=== PATIENT | female | born 1960 | race African-American/Black ===

== ENCOUNTER 2023-10-27 06:34 | Emergency (ER) | payer OTHER ==
[2023-10-27] MEDS ORDERED: methocarbamoL 750 MG TAB ONE (07:12)
[2023-10-27] MEDS ORDERED: IBUPROFEN 400 MG TAB ONE (07:12)
[2023-10-27] MEDS ORDERED: ONDANSETRON 4 MG (ODT) TAB ONE (07:12)
[2023-10-27] MEDS ORDERED: CODEINE 30MG/APAP 300MG TAB ONE (07:13)
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
[2023-10-27 09:30] VITALS: BP 156/87; O2SAT 100
== END 2023-10-27 09:10 | disposition home or self-care (01) ==
LOC: ER 06:34
DX: R51.9 Headache, unspecified (principal); M54.50 Low back pain, unspecified; M79.651 Pain in right thigh; V43.52XA Car driver injured in collision with other type car in traffic accident, initial encounter; Y93.89 Activity, other specified; Y92.410 Unspecified street and highway as the place of occurrence of the external cause; N83.201 Unspecified ovarian cyst, right side
CPT/HCPCS: 70450; 71250; 72125; 73552; 99284; Q0162